=== PATIENT | female | born 1935 | race Caucasian/White ===

== ENCOUNTER 2017-02-04 06:20 | Day surgery (SDC) | payer OTHER ==
[2017-01-03 13:58] VITALS: BMI 28.9
[2017-02-04] MEDS ORDERED: Propofol 10 mg/ml Inj (20 ML) ONE (07:50)
[2017-02-04] MEDS ORDERED: Bupivacaine-Epi 0.25%-1:200,000 PF Inj ONE (07:51)
[2017-02-04] MEDS ORDERED: ceFAZolin IV 2 gm in Dextrose 1 GM/50 ML BAG IVPB ONE (07:51)
[2017-02-04] MEDS ORDERED: Lidocaine 1% Inj (20ml) ONE (07:51)
[2017-02-04] MEDS ORDERED: Metoprolol 1 mg/ml Inj IVP ONE (09:18)
[2017-02-04] MEDS ORDERED: Succinylcholine Chloride 20 mg/ml Syr (5 ml) IV ONE (09:18)
[2017-02-04] MEDS ORDERED: Rocuronium 10 mg/ml (5 ml) ONE (09:18)
[2017-02-04] MEDS ORDERED: Albuterol 0.083% Inhal Sol (2.5 mg/3 mL) UD INH ONE (09:52)
[2017-02-04] MEDS ORDERED: HYDROmorphone 0.5 mg/0.5 ml ISec IVP PRN (09:52)
--- NOTE | 2017-02-04 09:52 | PCM.SURG1 ---
Surgeon's Initial Post Op Note - Surgeon's Notes Surgeon: Dr. Darcie Espinoza Level Vial Sealer: Priscilla Beasley CRFNA; Julia Adair PGY2 Pre-Operative Diagnosis: Cholelithiasis, chronic cholecystitis Operative Findings: see full operative report Post-Operative Diagnosis: same Operation Performed: Robotic assisted laparoscopic cholecystectomy Specimen/Specimens Removed: gallbladder Estimated Blood Loss: EBL {In ML}: 10 Date of Surgery/Procedure: 02/04/17 Time of Surgery/Procedure: 08:30
[2017-02-04] MEDS ORDERED: Albuterol-Ipratrop 3 mg / 0.5 (3 ml) UD ONE (09:55)
[2017-02-04] MEDS ORDERED: HYDROmorphone 0.5 mg/0.5 ml ISec ONE (09:59)
[2017-02-04] MEDS ORDERED: Albuterol-Ipratrop 3 mg / 0.5 (3 ml) UD INH STA (10:10)
[2017-02-04] MEDS ORDERED: Oxycodone/Acetaminophen 5/325 mg Tab PO PRN (12:00)
[2017-02-04 12:05] VITALS: BP 120/66; PULSE 67; RESP 18; TEMP 97; O2SAT 99
--- NOTE | 2017-02-05 00:29 | OP ---
PROCEDURE DATE: 02/04/2017 PREOPERATIVE DIAGNOSIS: Chronic cholecystitis and cholelithiasis. POSTOPERATIVE DIAGNOSES: 1. Chronic cholecystitis and cholelithiasis. 2. Extensive post-infectious adhesions. PROCEDURE DONE: 1. Robotic cholecystectomy. 2. Robotic extensive lysis of adhesions. PROCEDURE DONE: Dr. Cholo Espinoza. SALES REPRESENTATIVE WIRE ROPE: 1. PAULA Gonzales. Priscilla was present from the beginning up to end of the procedure, helped in prepping and draping, placement of the pod docking and undocking of the robot. 2. Julia Adair PGY2 TYPE OF ANESTHESIA: General endotracheal tube anesthesia. ESTIMATED BLOOD LOSS: Around 10 mL. DRAINS: None. PATHOLOGY: Gallbladder with the gallstone was sent to the pathology. COMPLICATIONS: None. INTRAOPERATIVE FINDINGS: The patient had changes of chronic cholecystitis with cholelithiasis with extremely thickened and edematous stone-filled gallbladder and the patient also had a post-infectious adhesion of the omentum to the liver and there was adhesion of the duodenum to the Calot's triangle as well as to the infundibulum. DESCRIPTION OF PROCEDURE: This is an 81-year-old female who was diagnosed with a chronic cholecystitis and cholelithiasis and the patient was consented for the laparoscopic legal administrative assistant robotic cholecystectomy possible open, brought to the OR, placed supine on the operating table after induction of the anesthesia. The abdomen was prepped and draped in the usual sterile fashion. The supraumbilical transverse 1.5 cm incision was made after incising the skin and subcutaneous tissue. The fascia was incised. The robotic camera port was placed. Another three 8 mm robotic camera port was placed in the upper abdomen and robotic was brought in. Arm 1 and arm 2 was docked and the patient had adhesion of the omentum and adhesion of the duodenum to the gallbladder and first adhesiolysis was done and the gallbladder appeared to be extremely thickened, edematous and packed with the gallstones and the gallbladder was retracted cranially. Again, extensive lysis of adhesion was done to identify the infundibulum and the Calot's triangle and the intraoperative FireFly was used to identify the common bile duct and the cystic duct and the Calot's triangle dissection was done. Cystic duct and cystic artery was identified and critical view of the safety was identified and the cystic duct and cystic artery was clipped at three places and cut in between two clips nearby gallbladder and gallbladder was dissected free from the gallbladder fossa, taken in Endocatch bag, taken out through the umbilical port site and sent off the table for the pathology. Due to the extensive enlargement of the left lobe of the liver, an extra port was placed to retract the left lobe up in order to facilitate dissection and after proper hemostasis, all the instrument was taken out under vision. The robot was undocked. The gallbladder was taken out through the umbilical port site and sent off the table for the pathology. There was a proper hemostasis in each and every part of the procedure. The umbilical port was closed in 2 layers, the fascia with 0 Vicryl interrupted sutures, skin with a 4-0 Monocryl at all the port site and dry sterile dressing was applied. The patient tolerated the procedure well. Count of the instrument was correct. There was no apparent complication. Cholo Espinoza MD [facility]
== END 2017-02-04 12:07 | disposition home or self-care (01) ==
LOC: C.SDS 06:20
PROVIDERS: ATTEND Surgery Surgical Critical Care
DX: K80.10 Calculus of gallbladder with chronic cholecystitis without obstruction (principal); K82.8 Other specified diseases of gallbladder

== ENCOUNTER 2017-05-23 10:35 | Emergency (ER) | payer SELFPAY ==
[2017-05-23 10:48] VITALS: BMI 24.2
--- NOTE | 2017-05-23 10:57 | C.PDOC ---
History Of Present Illness 81 y/o female, history of hypertension, presents to ED, accompanied by son, status post syncope and fall just prior to arrival. as per veneer jointer offbearer at bedside pt "felt dizzy", fell. Son reports that she fell down a few steps. Patient reportedly hit her head, with (+) LOC. Denies headache, dizziness, nausea, vomiting. Time Seen by Provider: 05/23/17 10:52 Chief Complaint (Nursing): Syncope History Per: Patient, Family (son) History/Exam Limitations: no limitations Onset/Duration Of Symptoms: Hrs Current Symptoms Are (Timing): Still Present Fall Associated With With Symptoms: Yes Recent travel outside of the [place]: No Past Medical History Reviewed: Historical Data, Nursing Documentation, Vital Signs Vital Signs: Last Vital Signs Temp 98.6 F 05/23/17 11:00 Pulse 97 H 05/23/17 11:00 Resp 18 05/23/17 11:00 BP 170/70 H 05/23/17 11:00 Pulse Ox 97 05/23/17 11:00 - Medical History PMH: COPD, Diabetes, HTN, Hypercholesterolemia, Pneumonia, Rheumatoid Arthritis Surgical History: Appendectomy, Cholecystectomy Family History: States: Unknown Family Hx - Social History Hx Tobacco Use: Yes (light smoker) Hx Alcohol Use: No Hx Substance Use: No - Immunization History Hx Tetanus Toxoid Vaccination: No Hx Influenza Vaccination: No Hx Pneumococcal Vaccination: No Review Of Systems Except As Marked, All Systems Reviewed And Found Negative. Constitutional: Negative for: Fever, Chills Respiratory: Negative for: Cough Gastrointestinal: Negative for: Vomiting Skin: Positive for: Bruising (left sided face) Neurological: Negative for: Headache, Dizziness Physical Exam - Physical Exam Appears: Non-toxic, No Acute Distress Skin: Warm, Dry Head: Normacephalic, Other (ecchymosis and swelling to left face, 3.0 - 4.0 cm ) Eye(s): bilateral: Normal Inspection Chest: Symmetrical Cardiovascular: Rhythm Regular Respiratory: Normal Breath Sounds, No Rales, No Rhonchi, No Wheezing Gastrointestinal/Abdominal: Soft, No Tenderness Back: Normal Inspection Extremity: Normal ROM Neurological/Psych: Oriented x3 Against Medical Advice - AMA Patient Left Against Medical Advice: The patient declines admission to the hospital and wishes to leave the Emergency Department. This action is against my medical advice. This decision was made with informed refusal. The patient was told that admission to the hospital is necessary. Explanation of the reasons why were discussed. The risks of leaving were explained to the patient and include, but are not limited to, worsening of known or currently unknown conditions, permanent disability and from undiagnosed or untreated conditions. The patient has the capacity to make this informed decision and understands my explanation of the current medical problem and risks of leaving. The patient voluntarily accepts these risks and signed an AMA form documenting our conversation. The patient was given the opportunity to ask questions and reconsider. The patient was encouraged to return to the Emergency Department at any time for further care. Medical Decision Making Medical Decision Making: Upon arrival, son and patient immediately asking for discharge, refusing any further evaluation. signs ama. explained via veneer jointer offbearer and son at [facility]. Disposition - Disposition Referrals: [facility] [Outside] [facility] [Outside] [facility] [Outside] Disposition: AGAINST MEDICAL ADVICE Disposition Time: 11:00 Condition: UNKNOWN Additional Instructions: you are leaving against medical advice. you are able to return to er with any concern at any time. Instructions: Syncope (DC), Fall Prevention for Older Adults (GEN), Against Medical Advice (ED) Forms: [employer] (Faroese) - Clinical Impression Clinical Impression: Syncope, Left against medical advice - Scribe Statement The provider has reviewed the documentation as recorded by the Scribe SM All medical record entries made by the Scribe were at my direction and personally dictated by me. I have reviewed the chart and agree that the record accurately reflects my personal performance of the history, physical exam, medical decision making, and the department course for this patient. I have also personally directed, reviewed, and agree with the discharge instructions and disposition.
[2017-05-23 11:13] VITALS: BP 170/70; PULSE 97; RESP 18; TEMP 98.6; O2SAT 97
== END 2017-05-23 11:00 | disposition left against medical advice (07) ==
LOC: C.ER 10:35
DX: R55 Syncope and collapse (principal); E11.9 Type 2 diabetes mellitus without complications; E78.00 Pure hypercholesterolemia, unspecified; I10 Essential (primary) hypertension; J44.9 Chronic obstructive pulmonary disease, unspecified; M06.9 Rheumatoid arthritis, unspecified; Z87.891 Personal history of nicotine dependence